=== PATIENT | female | born 1950 ===

== ENCOUNTER 2016-10-25 19:55 | Emergency (ER) | payer MEDICARE, OTHER ==
[2016-10-25 20:01] VITALS: RESP 20; TEMP 98; O2SAT 96
--- NOTE | 2016-10-25 21:11 | ED PDOC ---
HPI: Trauma/Fall - HPI Time Seen by Provider: 10/25/16 20:24 Chief Complaint (Nursing): Trauma Chief Complaint (Provider): Head injury History Per: Patient Additional Complaint(s): 66 yo female, PMH of DH, HTN. High Cholesterol and recent Right sided AKA, presents to ED s/p a fall from her wheelchair. Pt reports she was rolling herself downt he street and hit a bump, causing her to fall backwards. Pt reports (+)_ LOC, "woke up and the police were there." BLS reports no LOC? Pt has large occipital scalp hematoma noted and is complaining of neck pain as well. Past Medical History Reviewed: Historical Data, Nursing Documentation, Vital Signs Vital Signs: Last Vital Signs Temp 98 F 10/25/16 19:59 Pulse 87 10/25/16 19:59 Resp 20 10/25/16 19:59 BP 201/103 H 10/25/16 19:59 Pulse Ox 96 10/25/16 19:59 - Medical History PMH: Diabetes, HTN - Surgical History Surgical History: CABG Other surgeries: Right AKA - Family History Family History: States: Unknown Family Hx - Allergies Allergies/Adverse Reactions: Allergies Allergy/AdvReac Type Severity Reaction Status Date / Time No Known Allergies Allergy Verified 10/25/16 19:58 Review of Systems ROS Statement: Except As Marked, All Systems Reviewed And Found Negative Musculoskeletal: Positive for: Neck Pain Neurological: Positive for: Headache Physical Exam - Reviewed Nursing Documentation Reviewed: Yes Vital Signs Reviewed: Yes - Physical Exam Appears: Positive for: Well, Non-toxic, No Acute Distress Head Exam: Positive for: NORMOCEPHALIC. Negative for: NORMAL INSPECTION ( [place] scalp hematoma) Skin: Positive for: Normal Color, Warm, DRY Eye Exam: Positive for: EOMI, Normal appearance, PERRL ENT: Positive for: Normal ENT Inspection Neck: Positive for: Normal, Painless ROM Cardiovascular/Chest: Positive for: Regular Rate, Rhythm Respiratory: Positive for: CNT, Normal Breath Sounds Gastrointestinal/Abdominal: Positive for: Normal Exam, Bowel Sounds, Soft Back: Positive for: Normal Inspection Extremity: Positive for: Normal ROM Neurologic/Psych: Positive for: Alert, Oriented - ECG O2 Sat by Pulse Oximetry: 96 Medical Decision Making Medical Decision Making: Pt medicated with Acetaminophen PO, good relief obtained head and Cervical Spine CT scans obtained, both negative Disposition - Clinical Impression Clinical Impression: Head injury, Cervical sprain - Patient ED Disposition Is Patient to be Admitted: No - Disposition Disposition: Routine/Home Disposition Time: 22:57 Condition: STABLE Instructions: Head Injury (ED) Print Language: AR[place]
[2016-10-25 21:58] VITALS: BP 156/76; PULSE 84
--- NOTE | 2016-10-25 22:33 | CT ---
EXAM: CT Head Without Intravenous Contrast CLINICAL HISTORY: 66 years old, female; Injury or trauma; Fall; Initial encounter; Concussion / head injury; With loss of consciousness; Not specified; Injury date: 10-25-2016; Injury details: Pt. Fell backwards, in her wheelchair; Additional info: Fall, loc reported. Sent phy. Doc. With request TECHNIQUE: Axial computed tomography images of the head/brain without intravenous contrast. This CT exam was performed using one or more of the following dose reduction techniques: automated exposure control, adjustment of the mA and/or kV according to patient size, and/or use of iterative reconstruction technique. Coronal and sagittal reformatted images were created and reviewed. EXAM DATE/TIME: 10/25/2016 9:08 PM COMPARISON: No relevant prior studies available. FINDINGS: There is subcutaneous soft tissue swelling in posterior parietal region. There is atrophy. There is chronic small vessel ischemic disease. There is no hemorrhage or edema. No significant fluid in the sinuses. The osseous structures are normal. IMPRESSION: No acute findings.
--- NOTE | 2016-10-25 22:47 | CT ---
EXAM: CT Cervical Spine Without Intravenous Contrast CLINICAL HISTORY: 66 years old, female; Injury or trauma; Fall; Initial encounter; Blunt trauma; Injury date: 10-25-2016; Additional info: Pain S/P fall. Sent phy. Doc with request TECHNIQUE: Axial computed tomography images of the cervical spine without intravenous contrast. This CT exam was performed using one or more of the following dose reduction techniques: automated exposure control, adjustment of the mA and/or kV according to patient size, and/or use of iterative reconstruction technique. Coronal and sagittal reformatted images were created and reviewed. EXAM DATE/TIME: 10/25/2016 9:08 PM COMPARISON: No relevant prior studies available. FINDINGS: There is faint increased density within the disc spaces of C2-3, 3-4, C5-6, C6-7 consistent with either calcification versus iatrogenic. Recommend correlation with surgical history. There are degenerative changes in the osseous structures.Osteophyte formation and articular facet joint hypertrophy is present. Corticated osseous fragment posterior to C7 is noted. The vertebral bodies and facet joints are well aligned. The vertebral body height is well maintained. No subluxation. No fractures. IMPRESSION: No acute injury.
== END 2016-10-25 23:11 | disposition home or self-care (01) ==
LOC: H.ER 19:55
DX: S09.90XA Unspecified injury of head, initial encounter (principal); S16.1XXA Strain of muscle, fascia and tendon at neck level, initial encounter; W05.0XXA Fall from non-moving wheelchair, initial encounter; Y92.89 Other specified places as the place of occurrence of the external cause